=== PATIENT | male | born 2000 | race Caucasian/White ===

== ENCOUNTER 2024-01-12 13:12 | Emergency (ER) | payer OTHER, SELFPAY ==
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
[2024-01-12 13:14] VITALS: BP 146/75; PULSE 18; RESP 120; O2SAT 100; BMI 22.4
[2024-01-12 13:23] LABS: MANUAL DIFF FLAG NO
[2024-01-12 13:28] LABS: Basophils Percent Auto 0.4 % (0-2); Eosinophils Absolute Auto 0.1 X10*3/uL (0.0-0.4); Eosinophils Percent Auto 0.5 % (0-4); Hematocrit 44.5 % (42.0-52.0); Hemoglobin 15.3 g/dl (14.0-18.0); Imm Gran Abs Auto 0.04 X10*3/uL (0.00-0.03); Imm Gran Pct Auto 0.4 % (0.0-0.4); Lymphocytes Absolute Auto 2.6 X10*3/uL (1.2-4.9); Lymphocytes Percent Auto 23.2 % (20-40); Mean Corpuscular HGB Conc 34.4 g/dl (31.0-36.0); Mean Corpuscular Hemoglobin 31.1 pg (27.0-33.0); Mean Corpuscular Volume 90.4 fL (80.0-98.0); Mean Platelet Volume 9.7 fL (9.4-12.4); Monocytes Percent Auto 8.8 % (2-11); Neutrophils Absolute Auto 7.4 x10*3/uL (2.0-8.3); Neutrophils Percent Auto 66.7 % (45-73); Platelet Count 344 X10*3/uL (160-400); Red Blood Count 4.92 X10*6/uL (4.60-5.80); Red Cell Distribution Width 13.6 % (11.0-16.0); White Blood Count 11.1 X10*3/uL (4.8-10.8)
[2024-01-12 13:30] VITALS: BP 143/75; PULSE 109; RESP 15; TEMP 37; O2SAT 99
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
[2024-01-12 13:32] LABS: Prothrombin Time 12.5 SEC (11.1-13.3)
[2024-01-12] MEDS: Morphine Sulfate 4 MG/ML CARTRIDGE IVPUSH (13:32)
[2024-01-12 13:35] LABS: Partial Thromboplastin Time 25.6 SEC (26.0-36.8)
[2024-01-12] MEDS: ceFAZolin Sodium/Dextrose,Iso 2 GM/50 ML PIGGYBACK IV (13:43)
[2024-01-12 13:45] VITALS: BP 133/82; PULSE 123; RESP 25; O2SAT 100
[2024-01-12 13:48] LABS: Alanine Aminotransferase 21 U/L (0-40); Alkaline Phosphatase 70 U/L (39-117); Anion Gap 20 (12-20); Aspartate Amino Transferase 24 U/L (5-37); Bilirubin Total 0.5 mg/dL (0.0-1.0); Blood Urea Nitrogen 11 mg/dL (9-16); Calcium 9.9 mg/dL (8.4-10.2); Carbon Dioxide 18 mmol/L (22-29); Chloride 105 mmol/L (96-108); Creatinine Clr Calc Pharmacy 114.7; Estimated Glomerular Filt Rate > 60; Ethanol < 10 mg/dL; Glucose Random 130 mg/dL (60-115); Lipase 30 U/L (8-78); Potassium 3.6 mmol/L (3.3-5.1); Sodium 139 mmol/L (135-145); Total Protein 8.7 g/dL (6.5-8.0)
[2024-01-12 13:50] VITALS: BP 134/82; PULSE 119; RESP 14; O2SAT 99
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
[2024-01-12] MEDS: Bacitracin Oint 0.9 GM PACKET 1 APPL TOPICAL (14:40)
[2024-01-12 15:13] VITALS: BP 135/77; PULSE 93; RESP 18; O2SAT 98
[2024-01-12 15:39] VITALS: BP 135/77; PULSE 93; RESP 18; TEMP 37; O2SAT 98
== END 2024-01-12 15:39 | disposition home or self-care (01) ==
PROVIDERS: Emergency Provider Emergency Medicine Emergency Medical Services
DX: S21.141A Puncture wound with foreign body of right front wall of thorax without penetration into thoracic cavity, initial encounter (principal); R07.89 Other chest pain; R10.30 Lower abdominal pain, unspecified; X58.XXXA Exposure to other specified factors, initial encounter; W32.0XXA Accidental handgun discharge, initial encounter; Y93.9 Activity, unspecified; Y92.89 Other specified places as the place of occurrence of the external cause; Y99.8 Other external cause status; Z79.899 Other long term (current) drug therapy
CPT/HCPCS: 36415; 71260; 74177; 80053; 80307; 83690; 85025; 85610; 85730; 93005; 96365; 96375; 99284; 99285; J0690; J2270

== ENCOUNTER → 2024-01-12 13:30 | Outpatient (BNV) | payer OTHER, SELFPAY | PROVIDERS: Emergency Provider Emergency Medicine Emergency Medical Services; Visit Provider Internal Medicine Cardiovascular Disease | DX: R00.0 Tachycardia, unspecified (principal) | CPT/HCPCS: 93010 ==